=== PATIENT | male | born 1935 | race Caucasian/White ===

== ENCOUNTER 2019-09-09 10:27 | Outpatient (CLI) | payer MEDICARE, SELFPAY ==
--- NOTE | ~2019-09-09 | MR_ITS ---
EXAMINATION: MR abdomen wo con INDICATION: Other specified disorders of the kidney and ureter TECHNIQUE: Coronal SSFSE ARC, WATER:coronal LAVA-FLEX, Coronal 2D FIESTA FatSat, Axial SSFSE BH ARC, Axial 3D DualEcho BH, Axial SSFSE-IR, Axial DWI b=500, Axial 2D FIESTA FatSat, Axial LAVA ARC, Wayne l In and Opposed phase LAVA FLEX COMPARISON: None available CONTRAST: None FINDINGS: The lung bases are clear. The heart size is normal. The liver, spleen, pancreas, and adrena l glands are normal. Stones are present in the nondistended gallbladder. There is a 5.7 x 4.5 cm hete rogeneous mass of the left kidney upper pole. Further characterization is limited by the absence of i ntravenous contrast. Cysts of the kidneys measure up to 1.5 cm. There are no pathologically enlarged abdominal lymph nodes. There are no dilated loops of bowel. IMPRESSION: 1. Heterogeneous mass of the left kidney upper pole suspicious for neoplasm however characterization is incomplete without intravenous contrast. 2. Cholelithiasis without evidence of cholecystitis. Reviewed, dictated and finalized at location B. IMPRESSION: 1. Heterogeneous mass of the left kidney upper pole suspicious for neoplasm how ever characterization is incomplete without intravenous contrast. 2. Cholelithiasis without evidence of cholecystitis.
== END 2019-09-09 10:28 | disposition home or self-care (01) ==
LOC: ANHIMG 10:40
PROVIDERS: PCP Family Medicine; Visit Provider Family Medicine
DX: N28.89 Other specified disorders of kidney and ureter (principal); K80.20 Calculus of gallbladder without cholecystitis without obstruction
CPT/HCPCS: 74181

== ENCOUNTER 2020-04-19 13:32 | Outpatient (CLI) | payer MEDICARE, SELFPAY | END 2020-04-19 13:33 | disposition home or self-care (01) | LOC: ANHCOVIDVC 13:32 | PROVIDERS: PCP Family Medicine | DX: Z23 Encounter for immunization (principal) | CPT/HCPCS: 0001A; 91300 ==

== ENCOUNTER 2020-05-10 13:29 | Outpatient (CLI) | payer MEDICARE, SELFPAY | END 2020-05-10 13:30 | disposition home or self-care (01) | LOC: ANHCOVIDVC 13:29 | PROVIDERS: PCP Family Medicine | DX: Z23 Encounter for immunization (principal) | CPT/HCPCS: 0002A; 91300 ==

== ENCOUNTER 2020-08-07 08:43 | Outpatient (CLI) | payer MEDICARE, SELFPAY ==
--- NOTE | ~2020-08-07 | DEXA_ITS ---
Bone Density Report Name: Celestino Brunson Age: 84 Sex: Male Ethnicity: White Date of : 1935 Indication: cancer; asthma or emphysema; Referring Provider: Brittany Godinez Study: Bone densitometry was performed. Exam Date: August 07, 2020 Accession number: [id number] Bone Density: Region BMD T-score Z-score Classification AP Spine (L1-L4) 0.910 -1.6 -0.3 Osteopenia Femoral Neck (Left) 0.632 -2.2 -0.5 Osteopenia Total Hip (Left) 0.726 -2.0 -0.8 Osteopenia Total Hip Bilateral Avg 0.744 -1.9 -0.7 Osteopenia Femoral Neck (Right) 0.628 -2.2 -0.5 Osteopenia Total Hip (Right) 0.761 -1.8 -0.5 Osteopenia World Health Organization criteria for BMD impression classify patients as: Normal (T-score at or above -1.0), Osteopenia (T-score between -1.0 and -2.5), or Osteoporosis (T-score at or below -2.5). 10-year Fracture Risk(1): Major Osteoporotic Fracture 9.1% Hip Fracture 3.8% Reported Risk Factors: [place] (), Neck BMD=0.632, BMI=32.5 (1) FRAX(R) Version 3.08. Fracture probability calculated for an untreated patient. Fracture probability may be lower if the patient has received treatment. Clinical Information Provided by Patient: Has used the following medications: Vitamin D Has the following medical conditions: Asthma or Emphysema, Cancer Patient maximum height was 70.5 Drinks caffeinated beverages Impression: The patient has low bone mass, based on the Left Femoral Neck T-score. The patient has an estimated ten-year risk of hip fracture of 3.8% and an estimated ten-year risk of major fracture of 9.1%, based on the WHO FRAX algorithm. Discussion: BONE DENSITY IS LOW AT ONE OR MORE SKELETAL SITES. THE PATIENT'S BMD AND CLINICAL RISK FACTORS CONTRIBUTE TO THIS PATIENT'S INCREASED RISK OF FRACTURE. This patient's lowest T-score is low at one or more skeletal sites. It meets the World Health Organization's (WHO) criteria for ?low bone mass? (T-score between -1.0 and -2.5). The patient's 10-year risk of hip fracture as calculated by FRAX exceeds the threshold where pharmacological therapy is recommended by the National Osteoporosis Foundation (NOF). However, all treatment decisions require clinical judgment and consideration of individual patient factors, including patient preferences, comorbidities, previous drug use, risk factors not captured in the FRAX model (e.g., frailty, falls, vitamin D deficiency, increased bone turnover, interval significant decline in bone density) and possible under or overestimation of fracture risk by FRAX. The patient should follow a healthful lifestyle (good nutrition with adequate calcium and vitamin D, and appropriate weight-bearing exercise). Follow-Up: Consider repeating this study in 2 years to reassess this patient's status, or sooner if there is some new clinical
== END 2020-08-07 08:44 | disposition home or self-care (01) ==
PROVIDERS: PCP Family Medicine; Visit Provider Family Medicine
DX: M81.0 Age-related osteoporosis without current pathological fracture (principal); M85.88 Other specified disorders of bone density and structure, other site; M85.852 Other specified disorders of bone density and structure, left thigh; M85.851 Other specified disorders of bone density and structure, right thigh
CPT/HCPCS: 77080

== ENCOUNTER 2022-03-10 09:46 | Outpatient (CLI) | payer MEDICARE, SELFPAY ==
--- NOTE | ~2022-03-10 | CT_ITS ---
Non-contrast CT scan of the Abdomen and Pelvis Clinical indication: Malignant neoplasm of kidney Technique: 5 mm axial scans were obtained through the abdomen and pelvis without intravenous or oral contrast. Dose reduction technique was used on this scan by utilizing automated exposure control and iterative reconstruction technique. The dose-length product (DLP) was 1375.39 mGy-cm. Findings: Images through the lung bases reveal probable focal scarring and mild bronchiectasis in th e lingula. Patient is status post left nephrectomy. Small right renal cyst present. The liver, spleen, pancreas, and adrenals appear normal. Small calcified gallstones are present. Ther e is no aortic aneurysm. There is no evidence of bowel obstruction. There is sigmoid and descending colonic diverticulosis. Images through the pelvis were performed. There is no evidence of ascites or lymphadenopathy. Urinary bladder unremarkable. Fat-containing right inguinal hernia present. Prostate gland is enlarged. Impression: No evidence for active malignancy or metastatic disease. Status post left nephrectomy. Cholelithiasis. Fat-containing right inguinal hernia. Enlarged prostate gland. Reviewed, dictated and finalized at location . R CRANE OPERATOR Impression: No evidence for active malignancy or metastatic disease. Status post left nephr ectomy. Cholelithiasis. Fat-containing right inguinal hernia. Enlarged prostate gland.
== END 2022-03-10 09:47 | disposition home or self-care (01) ==
PROVIDERS: PCP Family Medicine; Visit Provider Family Medicine
DX: C64.9 Malignant neoplasm of unspecified kidney, except renal pelvis (principal); K80.20 Calculus of gallbladder without cholecystitis without obstruction; K40.90 Unilateral inguinal hernia, without obstruction or gangrene, not specified as recurrent; N40.0 Benign prostatic hyperplasia without lower urinary tract symptoms; Z90.5 Acquired absence of kidney
CPT/HCPCS: 74176

== ENCOUNTER 2022-04-29 08:53 | Outpatient (CLI) | payer MEDICARE, SELFPAY ==
--- NOTE | ~2022-04-29 | XR_ITS ---
Clinical Indication: Asthma, shortness of breath PA and lateral views of the chest: Comparison: 03/31/2016 Findings: The lungs are clear, without evidence of focal consolidation or pleural effusion. Cardiome diastinal silhouette is within normal limits. Bones and soft tissues are unremarkable. Impression: Normal chest. Reviewed, dictated and finalized at location . Impression: Normal chest.
--- NOTE | 2022-04-29 13:45 | WPDSIXMINUTE ---
Six Minute Walk Procedure Procedure Performed Pulmonary Stress Test (6 min walk) Six Minute Walk Six Minute Walk: This is a 6 minute walk test. The test was performed and interpreted in accordance with the 2014 ERS/ATS task force guidelines. Of note the patient stopped 3 times for total of approximately 40 seconds for shortness of breath. Findings: The patient's resting room air oxygen saturation measured by pulse oximetry was 94% and heart rate was 86 bpm. Patient ambulated for 244 meters and oxygen saturation remained 93 to 95%. Heart rate at the end of the study was 103 bpm. The patient did not qualify for supplemental oxygen at rest or with ambulation. There are no prior studies for comparison.
--- NOTE | 2022-04-29 13:47 | WPDPFTINT ---
PFT Procedure Performed PFT Procedure Performed Spirometry with Pre/Post Bronchodilator Plethysmography (Lung Vol) Diffusing Cap (DLCO) Flow Vol Loop PFT Interpretation This is a pulmonary function test with pre and post-bronchodilator spirometry, plethysmography and diffusing capacity. The test was performed and results interpreted in accordance with the 2019 and 2005 ATS/ERS Task Force guidelines respectively using the Global Lung Function Initiative-2012 reference equations. Patient demonstrated good effort and cooperation. Reproducibility criteria were met. The quality of the pre bronchodilator spirometry maneuver was Grade A and post bronchodilator spirometry maneuver was Grade A. Findings: Spirometry: There is decreased maximal expiratory airflow at all lung volumes with concave expiratory flow tracing. The contour the inspiratory flow tracing is normal. The pre bronchodilator FVC is 3.38 L, 91% predicted. The pre bronchodilator FEV1 is 1.43 L, 53% predicted. The pre bronchodilator FEV1: FVC ratio is 42%. The post bronchodilator FVC is 3.46 L, representing a 3% increase. The post bronchodilator FEV1 is 1.49 L, representing a 4% increase. The post bronchodilator FEV1: FVC ratio is 43%. Plethysmography: The total lung capacity is 8.35 L, 118% predicted. The functional residual capacity is 6.12 L, 158% predicted. The residual volume is 4.97 L, 179% predicted. Diffusing capacity: The diffusing capacity unadjusted for hemoglobin and carboxyhemoglobin is 17.1, 76% predicted. The diffusing capacity adjusted for alveolar volume is 3.77, 110% predicted. Impression: There is a moderately severe obstructive abnormality without significant improvement after inhaling a single dose of albuterol. The increase in residual volume is consistent with air trapping from an obstructive abnormality. Hyperinflation is present as demonstrated by the increase in functional residual capacity and is consistent with an obstructive abnormality. The diffusing capacity is normal. There are no prior studies for comparison
== END 2022-04-29 08:54 | disposition home or self-care (01) ==
PROVIDERS: PCP Family Medicine; Visit Provider Nurse Practitioner Family
DX: J44.9 Chronic obstructive pulmonary disease, unspecified (principal); R06.09 Other forms of dyspnea; R94.2 Abnormal results of pulmonary function studies
CPT/HCPCS: 71046; 94060; 94618; 94726; 94729

== ENCOUNTER 2023-05-19 14:25 | Outpatient (CLI) | payer MEDICARE, SELFPAY ==
--- NOTE | 2023-05-19 14:42 | ECHO_ITS ---
Patient Info Name: Celestino Brunson Age: 87 years : 1935 Gender: Male Ht: 70 in Wt: 225 lbs BSA: 2.28 m2 HR: 66 bpm BP: 150 / 77 mmHg Technical Quality: Poor Exam Date: 05/19/2023 2:49 PM Exam Location: Echo Lab Patient Status: Outpatient Admit Date: 05/19/2023 Staff Ordering Physician: Antionette Rowe PA-C Sharepoint Manager: Crystal Olson RDCS Attending Provider: Antionette Rowe PA-C Exam Type: CA echo dop color flow w con Study Info Indications - PULMONARY HYPERTENSION Complete two-dimensional, color flow and Doppler transthoracic echocardiogram is performed with contrast to opacify the left ventricle and to improve the deliniation of the left ventricle endocardial borders. Contrast/Agitated Saline Contrast/Ag. Saline: Definity Amount: 3.00 ml Administered By: Crystal Olson [facility] Existing IV Access: Yes New IV Access: Left Site Condition: IV removed Summary 1. Definity contrast administered improved wall motion interpretation. 2. Left ventricular chamber dimension is normal. 3. Left ventricular systolic function is normal, estimated at 60-65%. 4. The left ventricular diastolic function is grade I diastolic dysfunction. 5. E/e' 11 is mildly elevated. 6. There is trace tricuspid valve regurgitation. 7. No pulmonary hypertension, estimated pulmonary arterial systolic pressure is 31 mmHg. Left Ventricle E/e' 11 is mildly elevated. Definity contrast administered improved wall motion interpretation. Left ventricular chamber dimension is normal. Left ventricular systolic function is normal, estimated at 60-65%. The left ventricular diastolic function is grade I diastolic dysfunction. Right Ventricle Right ventricular chamber dimension is normal. Right ventricular systolic function is normal. Left Atria Left atrial chamber dimension is normal. Right Atria Right atrial chamber dimension is normal. Aortic Valve The aortic valve is not well visualized. Cannot determine number of aortic valve leaflets. There is no aortic valve stenosis based on valve area and gradients. There is no aortic valve regurgitation. Pulmonic Valve There is no pulmonic regurgitation. Mitral Valve There is no mitral valve stenosis. There is no mitral valve regurgitation. Tricuspid Valve There is trace tricuspid valve regurgitation. No pulmonary hypertension, estimated pulmonary arterial systolic pressure is 31 mmHg. Pericardium/Pleural There is no pericardial effusion. Inferior Vena Cava Normal inferior vena cava with >50% collapse upon inspiration consistent with normal right atrial pressure, 5 mmHg. Aorta The aortic root size at the sinus of Valsalva is normal. Left Ventricular Outflow Tract Name Value Normal LVOT 2D LVOT Diameter 2.09 cm LVOT Doppler LVOT Peak Gradient 6 mmHg LVOT Mean Gradient 4 mmHg LVOT VTI 27.20 cm LVOT VTI/AV VTI Ratio 0.97 LVOT Stroke Volume 93.45 ml LVOT CO 19.51 l/min LVOT CI 8.57 L/min/m2 Pulmonic Valve
[2023-05-19] MEDS: PERFLUTREN LIPID MICROSPHERES 1.5 ML VIAL DILUTED TO 10 ML TOTAL VOLUME IV PUSH (15:20)
--- NOTE | 2023-05-19 15:47 | IVDEFINITY ---
Prior to administration of IV Definity the patient was educated on the risks and benefits of the imaging enhancing agent including potential adverse side effects. The patient verbalized understanding. Allergies were verified. No exclusion criteria were identified and at least one of the following inclusion criteria were met: 1) physician request, 2) patient technically difficult to image (per the [place] [employer] of Echocardi[employer] guidelines of two or more segments not discernable within the apical view), or 3) questionable left ventricular function. ?
== END 2023-05-19 14:26 | disposition home or self-care (01) ==
PROVIDERS: PCP Family Medicine; Visit Provider Physician Assistant
DX: I27.20 Pulmonary hypertension, unspecified (principal)
CPT/HCPCS: C8929; Q9957

== ENCOUNTER 2023-07-05 13:36 | Outpatient (CLI) | payer MEDICARE, SELFPAY ==
--- NOTE | 2023-07-06 12:04 | WPDSIXMINUTE ---
Six Minute Walk Procedure Procedure Performed Pulmonary Stress Test (6 min walk) Six Minute Walk Six Minute Walk: This is a 6 minute walk test. The test was performed and interpreted in accordance with the 2014 ERS/ATS task force guidelines. Of note, at 2 minutes the patient stopped for 30 seconds for rest due to shortness of breath. Findings: The patient's resting room air oxygen saturation measured by pulse oximetry was 93% and heart rate was 92 bpm. Patient ambulated for 137 meters and oxygen saturation remained 92 to 94%. Heart rate at the end of the study was 108 bpm. The patient did not qualify for supplemental oxygen at rest or with ambulation. There are no prior studies for comparison.
--- NOTE | 2023-07-06 12:06 | P.PCNPFT_ITS ---
PFT Procedure Performed PFT Procedure Performed Spirometry with Pre/Post Bronchodilator Plethysmography (Lung Vol) Diffusing Cap (DLCO) Flow Vol Loop PFT Interpretation This is a pulmonary function test with pre and post-bronchodilator spirometry, plethysmography and diffusing capacity. The test was performed and results interpreted in accordance with the 2019 and 2005 ATS/ERS Task Force guidelines respectively using the Global Lung Function Initiative-2012 reference equations. Patient demonstrated good effort and cooperation. Reproducibility criteria were met. The quality of the pre bronchodilator spirometry maneuver was Grade A and post bronchodilator spirometry maneuver was Grade A. Findings: Spirometry: There is decreased maximal expiratory airflow at all lung volumes with concave expiratory flow tracing. The contour the inspiratory flow tracing is normal. The pre bronchodilator FVC is 3.03 L, 124% predicted. The pre bronchodilator FEV1 is 1.16 L, 63% predicted. The pre bronchodilator FEV1: FVC ratio is 38%. The post bronchodilator FVC is 3.35 L, representing a 10% increase. The post bronchodilator FEV1 is 1.24 L, representing a 7% increase. The post bronchodilator FEV1: FVC ratio is 37%. Plethysmography: The total lung capacity is 7.96 L, 163% predicted. The funct ional residual capacity is 6.01 L, 234% predicted. The residual volume is 4.93 L, 224% predicted. The residual volume: Total lung capacity ratio is 62%. Diffusing capacity: The diffusing capacity unadjusted for hemoglobin and carboxyhemoglobin is 15.3, 87% predicted. The diffusing capacity adjusted for alveolar volume is 3.41, 84% predicted. In comparison to previous pulmonary function testing on 04/29/2022 the post bronchodilator FVC is unchanged from 3.46 L to 3.35 L. The post bronchodilator FEV1 is decreased from 1.49 L to 1.24 L. The total lung capacity is unchanged from 8.35 L to 7.96 L. The functional residual capacity is unchanged from 6.12 L to 6.01 L. The residual volume is unchanged from 4.97 L to 4.93 L. The diffusing capacity unadjusted for hemoglobin and carboxyhemoglobin is unchanged from 17.1 to 15.3. The diffusing capacity adjusted for alveolar volume is unchanged from 3.77 to 3.41. Impression: There is a moderate obstructive abnormality. There is no significant improvement after inhaling a single dose of albuterol. The increase in residual volume to total lung volume ratio is consistent with hyperinflation from an obstructive abnormality. The diffusing capacity is normal. In comparison to previous pulmonary function testing on 04/29/2022 there has been a greater than anticipated time dependent decrease in the FEV1 with no significant change in the FVC, total lung capacity, functional residual capacity, residual volume or diffusing capacity. Clinical correlation is recommended.
== END 2023-07-05 13:37 | disposition home or self-care (01) ==
PROVIDERS: PCP Family Medicine; Visit Provider Physician Assistant
DX: J44.9 Chronic obstructive pulmonary disease, unspecified (principal); G47.34 Idiopathic sleep related nonobstructive alveolar hypoventilation
CPT/HCPCS: 94060; 94618; 94726; 94729

== ENCOUNTER 2023-09-01 08:05 | Outpatient (CLI) | payer MEDICARE, SELFPAY ==
[2023-09-01 08:30] LABS: Alveolar/Arterial O2 Gradient 15.8 mmHg; Base Excess ABG -2.1 mEq/l (+/-2.0); Fractional Inspired Oxygen 21 %; HCO3 ABG 21.9 mEq/l (22.0-26.0); Oxygen Content ABG 19.3 %vol (16.0-22.0); Oxygen Saturation ABG 97.1 % (95.0-100.0); Oxyhemoglobin 96.2 % THb (90.0-100.0); PCO2 ABG 35.4 mmHg (35.0-45.0); PO2 ABG 91.5 mmHg (80.0-100.0); PO2 FiO2 Ratio Arterial Blood 4.36 %; Total Hemoglobin 14.2 g/dL (12.0-18.0)
[2023-09-01 08:36] LABS: Device ROOM AIR; Site Drawn RIGHT BRACHIAL
== END 2023-09-01 08:06 | disposition home or self-care (01) ==
PROVIDERS: PCP Family Medicine; Visit Provider Internal Medicine Pulmonary Disease
DX: J44.9 Chronic obstructive pulmonary disease, unspecified (principal); J45.909 Unspecified asthma, uncomplicated
CPT/HCPCS: 36600; 82805

== ENCOUNTER 2023-09-03 12:29 | Outpatient (CLI) | payer MEDICARE, SELFPAY ==
--- NOTE | ~2023-09-03 | CT_ITS ---
CT Scan of the Chest without Contrast: Clinical Indication: COPD Technique: Contiguous sections were acquired throughout the chest without intravenous contrast. Dose reduction technique was used on this scan by utilizing automated exposure control and iterative recon struction technique. The dose-length product (DLP) was 526.37 mGy-cm. Findings: There is no evidence of any significant mediastinal, hilar or axillary lymphadenopathy. Extensive cor onary artery calcifications are present. There is no evidence of pleural or pericardial effusion. There are focal areas of mild tree-in-bud opacity in the left upper and lower lobes. There is chronic bronchiolectasis and scarring at the lingula. Images through the upper abdomen reveal probable prior left nephrectomy. Impression: Findings compatible with mild acute on chronic small airways infection, as detailed above. Reviewed, dictated and finalized at location . Impression: Findings compatible with mild acute on chronic small airways infection, as deta iled above.
== END 2023-09-03 12:30 | disposition home or self-care (01) ==
PROVIDERS: PCP Family Medicine; Visit Provider Internal Medicine Pulmonary Disease
DX: J44.9 Chronic obstructive pulmonary disease, unspecified (principal)
CPT/HCPCS: 71250

== ENCOUNTER 2024-07-14 12:40 | Outpatient (CLI) | payer MEDICARE, SELFPAY ==
--- NOTE | ~2024-07-14 | CT_ITS ---
EXAMINATION: CT diagnostic chest wo con DATE: 07/14/2024 14:01 INDICATION: Chronic obstructive pulmonary disease. TECHNIQUE: Computed tomography (CT) of the chest was performed without intravenous contrast. The dose -length product was 371.26 mGy-cm. Automated exposure control and iterative reconstruction technique were employed. COMPARISON: CT dated 09/03/2023 FINDINGS: Heart size normal. No thoracic lymphadenopathy. There is atherosclerosis there is a small 1 .5 cm low-density mass anterior mediastinum measuring 1.5 cm, likely benign. This is not significantl y changed from prior study. There is atherosclerosis of the aorta and coronary arteries. Upper abdome n is unremarkable. There are reticulonodular densities in the left upper lobe and left lower lobe wit hout significant interval change. There is mild associated bronchiectasis.0 status post left nephrect javad. There is a new 3 mm left upper lobe nodule, likely related to adjacent reticulonodular opacities . No endobronchial lesions. No pneumothorax.Mild-moderate thoracic spondylosis. There are chronic low er thoracic compression deformities. IMPRESSION: 1. Reticulonodular opacities in the lingula and left lower lobe, most likely related to chronic small airway disease. Atypical infection less favored. New 3 mm lingular nodule, likely related. Reviewed, dictated and finalized at location A. IMPRESSION: 1. Reticulonodular opacities in the lingula and left lower lobe, most likely re lated to chronic small airway disease. Atypical infection less favored. New 3 m m lingular nodule, likely related.
--- OUTSIDE RECORDS SUMMARY | 2024-07-14 12:43 | XMS_ITS | Clinical Summary ---
Author Organization [facility] Address [address] [place] [id number] Care Team Providers Care Diffuser Operator Name Role Phone Brittany Godinez MD Primary Care Provider Allergies Active Allergy Reactions Criticality Noted Date Comments Penicillins Rash Medium 04/07/2019 Penicillin allergy history form completed, minor risk Prednisone Swelling High 11/10/2019 Severe in legs and feet Uses Breo Ellipta (fluticasone) inhaler at home 11/10/19 Medications albuterol HFA (PROVENTIL HFA,VENTOLIN HFA,PROAIR HFA) 90 mcg/actuation inhaler Inhale 2 puffs every 6 (six) hours as needed Active atorvastatin (LIPITOR) 40 mg tablet Take 40 mg by mouth nightly 0 Active cholecalciferol (VITAMIN D-3) 2000 unit tablet Take 2,000 Units by mouth daily Active Breo Ellipta 200-25 mcg/dose diskus inhaler Inhale 1 puff daily 0 Active furosemide (LASIX) 20 mg tablet Take 20 mg by mouth daily 0 Active niacin ER (NIASPAN) 500 mg CR capsule Take 500 mg by mouth daily Active lisinopril-hydr oCHLOROthiazide (ZESTORETIC) 20-12.5 mg per tabletIndicatio ns:hypertension Take 1 tablet by mouth daily Active acetaminophen (TYLENOL) 500 mg tablet Take 500 mg by mouth every 6 (six) hours as needed for pain Active oxyCODONE-aceta minophen (PERCOCET) 10-325 mg per tabletIndicatio ns:Pain Take 1 tablet by mouth every 4 (four) hours as needed for pain 30 tablet 0 Active docusate sodium (COLACE) 50 mg capsuleIndicati ons:constipatio n Take 2 capsules (100 mg total) by mouth 2 (two) times a day as needed for constipation 30 capsule 0 Active Active Problems Problem Noted Date Diagnosed Date Renal cell carcinoma of left kidney 11/29/2019 Resolved Problems Problem Noted Date Diagnosed Date Resolved Date Kidney mass 10/04/2019 11/29/2019 Left renal mass 10/04/2019 11/29/2019 Overview (10/04/2019): Added automatically from request for surgery [id number] Surgical History Surgery Date Site/Laterality Comments KIDNEY STONE SURGERY multiple Medical History Medical History Date Comments Asthma COPD (chronic obstructive pulmonary disease) (HC C) Hypertension Hyperlipidemia Kidney stone Arthritis Non Hodgkin's lymphoma (HCC) rem ission Vertigo Pneumonia 03/2019 Renal mass, left Family History Medical History Relation Name Comments peritonitis Father No Known Problems Mother Relation Name Status Comments Father Mother Social History Tobacco Use Types Packs/Day Years Used Date Smoking Tobacco: Former Smokeless Tobacco: Never Comments:quit 50+ years ago Alcohol Use Standard Drinks/Week Comments Not Currently 0 (1 standard drink = 0.6 oz pur e alcohol) Social Connection and Isolation Panel [NHANES] A nswer Date Recorded Frequency of Communication with Friends and Fami ly Not on file 11/13/2019 How often do you get together with friends or re latives? Once a week 11/13/2019 How often do you attend methodist or islam serv ices? Never 11/13/2019 Do you belong to any clubs o r organizations such as methodist groups, unions, fraternal or athletic groups, or school groups? No 11/13/2019 How often do you attend meet ings of the clubs or organizations you belong to? Never 11/13/2019 Are you , , di vorced, , never , or living with a partner? 11/13/2019 AUDIT-C Answer Date Recorded Q1: How often do you have a drink containing alc ohol? Never 10/04/2019 Average Number of Drinks Not on file 020 Frequency of Binge Drinking Not on file 09/15 Overall Financial Resource Strain (CARDIA) Answe r Date Recorded How hard is it for you to pa y for the very basics like food, housing, medical care, and heating? Not hard at all 11/13/2019 Hunger Vital Sign Answer Date Recorded Within the past 12 months, y ou worried that your food would run out before you got the money to buy more. Never true 11/13/19 20 Within the past 12 months, t he food you bought just didn't last and you didn't have money to get more. Never true 11/13/2019 PRAPARE - Transportation Answer Date Re corded In the past 12 months, has l ack of transportation kept you from medical appointments or from getting medications? No 10/17 In the past 12 months, has l ack of transportation kept you from meetings, work, or from getting things needed for daily living? 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 Gender Identity Not on file Sexual Orientation Not on file Obstetrics History Last Filed Vital Signs Vital Sign Reading Time Taken Comments Blood Pressure 127/80 11/29/2019 12:31 PM CDT Pulse 101 11/29/2019 12:31 PM CDT Temperature 37.3 C (99.1 F) 11/29/2019 12:31 PM CDT Respiratory Rate 15 11/14/2019 11:25 AM CDT Oxygen Saturation 100% 11/14/2019 11:25 AM CDT Inhaled Oxygen Concentration - - Weight 112.9 kg (249 lb) 11/10/2019 6:20 AM CDT Height 179.1 cm (5' 10.5) 11/10/2019 6:20 AM CD T Body Mass Index 35.22 11/10/2019 6:20 AM CDT Plan of Treatment Not on file Insurance [facility] MEDICARE ADVANTAGE MEDICARE ADVANTAGE Advance Directives For more information, please contact: [phone] * Full Code (Latest Code Status on File) Date Activated Date Inactivated Comments 11/10/2019 2:18 PM 11/14/2019 9:04 PM Care Teams Diffuser Operator Relationship Specialty Start Date End Date Rostovstephane, Brittany Y., MD [address] [facility] [address] [place] [address] PCP - General 06/07/17
--- OUTSIDE RECORDS SUMMARY | 2024-07-14 12:43 | XMS_ITS | Referral Summary ---
Author Organization [facility] Address [address] [place] [id number] Care Team Providers Care Ultrasound Technician Name Role Phone Brittany Godinez MD Primary [...] (10/04/2019): Added automatically from request for surgery [id number] Social History Tobacco Use Types Packs/Day Years [...] week 11/13/2019 How often do you attend congregational or christian serv ices? 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
--- NOTE | 2024-07-20 13:45 | WPDPFTINT ---
PFT Procedure Performed PFT Procedure Performed Spirometry with Pre/Post Bronchodilator Plethysmography (Lung Vol) Diffusing Cap (DLCO) Flow Vol Loop PFT Interpretation DOS: 07/14/2024 REQUESTING: Hugh Wilcox MD REASON FOR TESTING: COPD PULMONARY FUNCTION TESTS Results are reliable and reproducible. Repeatability of spirometry FEV1 maneuver pre and post bronchodilator is Grade A. GLI 2012 reference equations were used. Spirometry: The pre-bronchodilator FEV1 is 1.06 L, 42%, severely reduced. The pre-bronchodilator FVC is 2.86 L, 84%, normal. The FEV1/FVC ratio is 37%, reduced, consistent with airflow obstruction. After bronchodilator, the FEV1 is 1.20 L, 48%, +13%. The post-bronchodilator FVC is 3.12 L, 91%, +9%. The FEV1/FVC ratio is 39%, reduced. Lung volumes: The total lung capacity is 6.84 L, 102%. FRC is 4.91 L, 134%, normal. The residual volume is 3.94 L, 145%, increased consistent with air trapping. The RV/TLC is 58%, increased consistent with air trapping. Airway resistance is increased. Diffusion: DLCO is 16.5, 78%, normal. The DLCO/VA is 3.48, 100%, normal. Flow volume loop: The flow volume loop coving of the expiratory limb consistent with airflow obstruction. IMPRESSION: This study shows an extremely severe obstructive ventilatory impairment with a significant response to bronchodilator, moderate air trapping with normal diffusion. Compared to a prior study 07/05/2023, the absolute value of FEV1 is similar, previously was 1.16 L, now 1.06 L. Shahnaz Persaud MD
== END 2024-07-14 12:41 | disposition home or self-care (01) ==
LOC: ANHPFT 12:41
PROVIDERS: PCP Family Medicine; Visit Provider Internal Medicine Pulmonary Disease
DX: R91.8 Other nonspecific abnormal finding of lung field (principal); J44.9 Chronic obstructive pulmonary disease, unspecified
CPT/HCPCS: 71250

== ENCOUNTER 2024-07-14 12:41 | Outpatient (CLI) | payer MEDICARE, SELFPAY | END 2024-07-14 12:42 | disposition home or self-care (01) | PROVIDERS: PCP Family Medicine; Visit Provider Internal Medicine Pulmonary Disease | DX: J44.9 Chronic obstructive pulmonary disease, unspecified (principal); M35.1 Other overlap syndromes | CPT/HCPCS: 94060; 94726; 94729 ==